=== PATIENT | female | born 1980 | race Caucasian/White ===

== ENCOUNTER 2017-11-15 03:58 | Emergency (ER) | payer OTHER ==
[~2017-11-15] VITALS: Ht 167.6 cm; Wt 90.9 kg
[2017-11-15] MEDS ORDERED: CefTRIAXone SODIUM 1 GM/VIAL IM ONE (06:30)
[2017-11-15] MEDS ORDERED: LIDOCAINE HCL/PF 1% 2 ML VIAL IM ONE (06:30)
[2017-11-15] MEDS ORDERED: ONDANSETRON HCL 4 MG TABLET PO ONE (07:00)
[2017-11-15] MEDS ORDERED: OxyCODONE HCL/ACETAMINOPHEN 5-325 MG TABLET PO ONE (07:00)
[2017-11-15 07:11] VITALS: BP 120/81
== END 2017-11-15 07:32 | disposition home or self-care (01) ==
LOC: EMS 03:58
DX: L03.115 Cellulitis of right lower limb (principal)
CPT/HCPCS: 73610; 96372; 99284; J0696; J3490; Q0162